=== PATIENT | male | born 2000 | race Caucasian/White ===

== ENCOUNTER → 2022-04-17 | Outpatient (CLI) | payer BC ==
--- NOTE | 2022-04-17 18:39 | Diagnostic Imaging Report ---
EXAM: LUMBAR SPINE - 2-3 VIEWS INDICATION: Low back pain. Compression injury in 2015. COMPARISON: None. FINDINGS: Normal alignment. Vertebral body heights in the lumbar spine are preserved. Subtle anterior wedging of T12 is likely chronic. No acute-appearing fractures. No spondylotic change. Visualized pelvis is intact. IMPRESSION: 1. No acute radiographic findings in the lumbar spine. No spondylotic change. 2. Subtle anterior wedging of T12 is likely chronic. This could be further investigated with MRI, if clinically warranted. Dictated by: Dictated on workstation # [id number]
== END ==
LOC: RAD 14:12
PROVIDERS: ATTEND Chiropractor
DX: M54.50 Low back pain, unspecified (principal)
CPT/HCPCS: 72100